=== PATIENT | female | born 1945 | race Caucasian/White ===

== ENCOUNTER 2019-09-14 07:45 | Day surgery (SDC) | payer OTHER ==
[~2019-09-14] VITALS: Wt 59.0 kg
[~2019-09-14 07:45] MED LIST: ALBU90OI6; ASPI81CH; BENTYL10 MG; CALCIUM; CLOTRIMAZOLE; Daily Multiple1 EACH; JUICE PLUS; METF500C; Mobic15 MG; OMEP20ER; SENN187; VITAMIN D3; VITAMIN E; [UNRECOGNIZED DRUG - OTHER]; [UNRECOGNIZED DRUG - OTHER]; [UNRECOGNIZED DRUG - OTHER]
--- NOTE | 2019-09-14 08:03 | NUR ---
09/14/19 0803 MARLENY SHAIKH PT BOWEL PREP PLENVU
[2019-09-14] MEDS ORDERED: Lisinopril2.5 MG (08:08)
[2019-09-14] MEDS ORDERED: Crestor20 MG (08:09)
[2019-09-14] MEDS ORDERED: GLIM2 (08:10)
[2019-09-14] MEDS ORDERED: METF500 (08:10)
[2019-09-14] MEDS ORDERED: FURO20 (08:12)
[2019-09-14] MEDS ORDERED: POTA10T (08:12)
== END 2019-09-14 10:05 | disposition home or self-care (01) ==
LOC: ORSCSDS 07:45
PROVIDERS: Internal Medicine Gastroenterology
PROC: 0DBK8ZX Excision of Ascending Colon, Via Natural or Artificial Opening Endoscopic, Diagnostic (ICD-10-PCS; principal; 2019-09-14 09:00)
DX: Z12.11 Encounter for screening for malignant neoplasm of colon (principal); K63.5 Polyp of colon; K57.30 Diverticulosis of large intestine without perforation or abscess without bleeding; I10 Essential (primary) hypertension; E11.9 Type 2 diabetes mellitus without complications; G47.33 Obstructive sleep apnea (adult) (pediatric); Z79.82 Long term (current) use of aspirin; Z79.84 Long term (current) use of oral hypoglycemic drugs; Z79.899 Other long term (current) drug therapy
CPT/HCPCS: 82947; 88305; J0330; J0461; J2405; J2704; J7120

== ENCOUNTER 2024-06-29 09:30 | Day surgery (SDC) | payer OTHER ==
[~2024-06-29] VITALS: Ht 149.9 cm; Wt 57.7 kg
[~2024-06-29 09:30] MED LIST changes: +Balanced Salt Epinephrine Irrigation Solution 500 mL IR SCH; +Crestor20 MG; +Diazepam 5 MG Tab PO PRN; +Diazepam 5 MG Tab PO SCH; +FURO20; +GLIM2; +Lidocaine HCl/Pf 1% 5 ML VIAL XX SCH; +Lisinopril2.5 MG; +METF500; +Moxifloxacin HCL 0.5 MG/0.1 ML 0.4MLSYR RIGHTEYE SCH; +Ondansetron 4 MG SoluTab MM PRN; +PHENYLEPHRINE\\TROPICAMIDE\\TETRACAINE OPHTHALMIC DILATING SOLN RIGHTEYE PRN; +POTA10T; +Povidone-Iodine 450 DROP/30 ML Solution ONE; +Povidone-Iodine 450 DROP/30 ML Solution RIGHTEYE SCH; +Tetracaine HCl/Pf 0.5% Opth Soln 4 ml ONE
[2024-06-29] MEDS ORDERED: Diazepam 5 MG Tab ONE (10:01)
--- NOTE | 2024-06-29 10:20 | NUR ---
06/29/24 Bonnie FletcherohChastity colvin INITIAL ANXIETY 0/10 PER PATIENT SHE WOULD PREFER TO NOT TAKE VALIUM SHE REPORTS SHE TOOK A 5 MG VALIUM ONCE BEFORE AND HER TOLD HER SHE WAS "CRAZY FOR 3 DAYS". 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 RN EXPLAINED DR STEINBERG CHANGED ORDER TO 5 MG VALIUM INSTEAD OF THE STANDARD 7 MG, BUT THAT RN WILL DISCUSS WITH DR STEINBERG.
[2024-06-29] MEDS ORDERED: FARXIGA10 MG PO (10:24)
[2024-06-29] MEDS ORDERED: ROSUVASTATIN CAL5 MG PO (10:25)
[2024-06-29] MEDS ORDERED: LUTEIN20 MG (10:26)
[2024-06-29] MEDS ORDERED: MAALOX (10:27)
[2024-06-29] MEDS ORDERED: VALA500 (10:27)
--- NOTE | 2024-06-29 10:59 | NUR ---
06/29/24 1059 Shilpa Parra BP-[id number]/77 P-70 [id number]% 10L BLOW BY O2
[2024-06-29 11:15] VITALS: BP 141/68
--- NOTE | 2024-06-29 11:15 | NUR ---
06/29/[address] AT BEDSIDE
== END 2024-06-29 11:30 | disposition home or self-care (01) ==
LOC: ORSCSDS 09:30
PROVIDERS: Student in an Organized Health Care Education/Training Program
PROC: 08RJ3JZ Replacement of Right Lens with Synthetic Substitute, Percutaneous Approach (ICD-10-PCS; principal; 2024-06-29 11:00)
DX: E11.36 Type 2 diabetes mellitus with diabetic cataract (principal); H25.811 Combined forms of age-related cataract, right eye; Z96.1 Presence of intraocular lens; H53.002 Unspecified amblyopia, left eye; E78.5 Hyperlipidemia, unspecified; K21.9 Gastro-esophageal reflux disease without esophagitis; I10 Essential (primary) hypertension; Z79.84 Long term (current) use of oral hypoglycemic drugs; Z79.899 Other long term (current) drug therapy
CPT/HCPCS: 82947; A9270; V2632